=== PATIENT | female | born 1995 | race Caucasian/White ===

== ENCOUNTER 2019-01-07 17:42 | Emergency (ER) | payer SELFPAY ==
[~2019-01-07] VITALS: Ht 157.5 cm; Wt 86.0 kg
[~2019-01-07 17:42] MED LIST: FERR240T9 PO; PREN-39 PO
[2019-01-07 17:51] VITALS: BP 142/71; PULSE 73; RESP 18; Ht 157.5 cm; Wt 86.0 kg
== END 2019-01-07 20:20 | disposition left against medical advice (07) ==
LOC: FTE 17:42
DX: Z53.21 Procedure and treatment not carried out due to patient leaving prior to being seen by health care provider (principal)